=== PATIENT | male | born 1950 | race Caucasian/White ===

== ENCOUNTER 2018-09-01 07:57 | Day surgery (SDC) | payer MEDICARE ==
[2018-09-01] MEDS ORDERED: Marcaine 0.5% SDV 10 ML IJ ONE (07:58)
[2018-09-01] MEDS ORDERED: Depo-Medrol 40 MG/ML IM ONE (07:58)
[2018-09-01] MEDS ORDERED: DIPRIVAN 200 MG/20 ML IV ONE (07:58)
[2018-09-01] MEDS ORDERED: LIDOCAINE HCL 2% 100 MG/5 ML IJ ONE (07:58)
[2018-09-01] MEDS ORDERED: Lactated Ringers 1,000 ML IV ONE (12:02)
--- NOTE | 2018-09-01 12:13 | XRAY ---
Indication: Bilateral SI joint injections. Intraoperative fluoroscopy was provided for 20 seconds. 3 digital spot images submitted for interpretation demonstrates posterior spinal needle tip projecting over the inferior right SI joint. Correlate with intraoperative findings/report.
--- NOTE | 2018-09-01 12:17 | XRAY ---
20 seconds fluoroscopy time in surgery for bilateral SI joint injections.
== END 2018-09-01 10:32 | disposition home or self-care (01) ==
LOC: SDC-PAIN 07:57
PROVIDERS: ATTEND Psychiatry & Neurology Pain Medicine
DX: M46.1 Sacroiliitis, not elsewhere classified (principal); M53.3 Sacrococcygeal disorders, not elsewhere classified; I10 Essential (primary) hypertension; E11.9 Type 2 diabetes mellitus without complications; Z79.899 Other long term (current) drug therapy
CPT/HCPCS: 20610; 72020; 77002; 82962; J1030; J2704

== ENCOUNTER 2018-10-06 09:22 | Day surgery (SDC) | payer MEDICARE ==
[2018-10-06] MEDS ORDERED: Sodium Chloride 0.9(Preservative Free) 10 ML IJ ONE (09:23)
[2018-10-06] MEDS ORDERED: DIPRIVAN 200 MG/20 ML IV ONE (09:23)
[2018-10-06] MEDS ORDERED: Ketamine HCl 50 MG/ML IV ONE (09:23)
[2018-10-06] MEDS ORDERED: Depo-Medrol 40 MG/ML IM ONE (09:23)
[2018-10-06] MEDS ORDERED: Xylocaine 1% Vial 30 ML PF IJ ONE ×2 (09:23)
--- NOTE | 2018-10-06 11:58 | XRAY ---
Indication: L4-L5 MAYNOR. Intraoperative fluoroscopy was provided for 17 seconds. 2 digital spot images submitted for interpretation demonstrates midline posterior spinal needle tip projecting just posterior to the L4-L5 interspace. Correlate with intraoperative findings/report.
--- NOTE | 2018-10-06 11:58 | XRAY ---
17 seconds fluoroscopy time in surgery for L4-L5 MAYNOR.
[2018-10-06] MEDS ORDERED: Lactated Ringers 1,000 ML IV ONE (14:28)
== END 2018-10-06 11:47 | disposition home or self-care (01) ==
LOC: SDC-PAIN 09:22
PROVIDERS: ATTEND Psychiatry & Neurology Pain Medicine
DX: M54.16 Radiculopathy, lumbar region (principal); I10 Essential (primary) hypertension; E11.9 Type 2 diabetes mellitus without complications; J44.9 Chronic obstructive pulmonary disease, unspecified; Z79.899 Other long term (current) drug therapy
CPT/HCPCS: 72100; 77003; J1030; J2001; J2704